=== PATIENT | female | born 1960 | race Caucasian/White ===

== ENCOUNTER 2016-08-08 20:39 | Emergency (ER) | payer OTHER ==
[2016-08-08 20:47] VITALS: BP 115/78; PULSE 67; RESP 20; TEMP 98.6; O2SAT 97
[2016-08-08] MEDS ORDERED: OXYCODONE/APAP 5/325MG PREPACK#4 BTL TAKEHOME ONE (22:05)
--- NOTE | 2016-08-08 22:05 | EDPHY ---
H & P Time Seen by Provider: 08/08/16 21:29 HPI/ROS: CHIEF COMPLAINT: Right lateral foot pain HISTORY OF PRESENT ILLNESS: 55-year-old female complaining of acute right lateral foot pain which occurred this morning when she was in [place] and route to [place], sustained a mechanical slip in twisted her foot. She is able to bear weight albeit with pain, worse after several hours of travel. No direct trauma or fall from height. No paresthesia. Reproducible pain with palpation weight-bearing. PHYSICAL EXAM (Prior to examination, patient consented to physical exam, hands were washed and my usual and customary physical exam procedures followed) 1) GENERAL: Well-developed, well-nourished, alert and oriented. Appears to be in no acute distress. 2) HEAD: Normocephalic 3) HEENT: Pupils equal, round, reactive to light bilaterally. 4) LUNGS: Breathing comfortably. 5) MUSCULOSKELETAL: proximal tibia and fibula nontender . Tender to palpation base of 5th metatarsal and lateral midfoot. negative Mcclellan test, compartments soft 6) SKIN: Intact no tenting no erythema. Mild ecchymosis present at same location of pain 7) VASCULAR: DP,PT pulses and cap refill present and brisk DIFFERENTIAL DIAGNOSIS: in no particular order including but not limited to fracture, sprain, compartment syndrome Xray of the right foot interpreted by myself: Questionable old versus new avulsion fracture lateral to the cuboid bone Procedure: Crutches indications for crutch use discussed with patient. Patient fitted for crutches by ER staff. Observed ambulating with crutches. I think the patient has the capacity to safely use crutches. Usual and customary crutch walking precautions provided Procedure: Splint A [place] boot splint was applied by ER residential gas heat technician. After application of the splint I returned and re-examined the patient. The splint was adequately immobilizing the joint and distal to the splint the patient's circulation and sensation were intact. Patient shows no signs of compartment syndrome. Was given orthopedic precautions. Smoking Status: Never smoked Constitutional: Initial Vital Signs Temperature (C) 37 C 08/08/16 20:46 Heart Rate 67 08/08/16 20:46 Respiratory Rate 20 08/08/16 20:46 Blood Pressure 115/78 08/08/16 20:46 O2 Sat (%) 97 08/08/16 20:46 Allergies/Adverse Reactions: Sulfa (Sulfonamide Antibiotics) Allergy (Intermediate, Verified 08/08/16 20:44) generalized rash Penicillins Allergy (Mild, Verified 08/08/16 20:44) small area of rash Home Medications: Medication Instructions Recorded Cetirizine [ZyrTEC 10 mg (RX)] 12/11/13 Hydrocodone/APAP 5/325 [[place] 1 - 2 each PO Q6 PRN #20 tab 12/11/13 5/325] Ondansetron Odt [Zofran Odt] 4 mg PO Q4PRN PRN #20 tab 12/11/13 buPROPion [Wellbutrin 75mg (*)] 12/11/13 oxyCODONE/APAP 5/325 [Percocet 1 tab PO Q6 #10 tab 08/08/16 5/325] MDM/Departure - MDM ED Course/Re-evaluation: Patient is neurovascularly intact. She would like to follow up with Taylor Cline , orthopedics at [facility]. - Depart Disposition: Home, Routine, Self-Care Clinical Impression: Fracture of right foot Qualifiers: Encounter type: initial encounter Fracture type: closed Qualifier Code: ( S92.901A) Unspecified fracture of right foot, initial encounter for closed fracture Condition: Good Instructions: Foot Fracture in Adults (ED) Additional Instructions: Return to the ER immediately if you experience discoloration, have worsening pain, numbness, tingling, or any other symptoms that concern you. If you received x-rays in the emergency department today, be advised, that ligamentous , tendon, muscular, and other non-bony injury cannot be fully ruled out. Try to keep your affected extremity elevated above the level of your chest, and keep cold packs on the affected area, for the next 48 hours. Prescriptions: oxyCODONE/APAP 5/325 [Percocet 5/325] 1 tab PO Q6 #10 tab Referrals: Taylor Cline PA [[facility]] - 2-3 days, call for appt.
--- NOTE | 2016-08-09 06:43 | DX ---
Right Foot Minimum 3 Views History: Trauma, pain. Fall. Comparison: None. Findings: Right fifth toe proximal phalanx mid diaphyseal slight irregularity may represent a nondisp laced fracture of indeterminate age. Adjacent soft tissue swelling. Metatarsals demonstrate no acute fracture. There is a small bone density adjacent to the fifth metatarsal base likely representing old trauma. Small plantar calcaneal spur. IMPRESSION: Deformity of the right fifth toe proximal phalanx mid diaphyseal region may represent a n ondisplaced fracture of indeterminate age. Findings and recommendations discussed with Emergency Department physician, Leobardo Stevenson PA-C today at 2230 hours.
== END 2016-08-08 22:28 | disposition home or self-care (01) ==
DX: S92.515A Nondisplaced fracture of proximal phalanx of left lesser toe(s), initial encounter for closed fracture (principal); W18.40XA Slipping, tripping and stumbling without falling, unspecified, initial encounter
CPT/HCPCS: L4386

== ENCOUNTER → 2017-06-30 | Outpatient (CLI) | payer OTHER | LOC: BMCIMAGING 12:52 | PROVIDERS: ATTEND Internal Medicine | DX: Z12.31 Encounter for screening mammogram for malignant neoplasm of breast (principal); Z80.3 Family history of malignant neoplasm of breast | CPT/HCPCS: G0202 ==

== ENCOUNTER → 2017-07-14 | Outpatient (CLI) | payer OTHER | LOC: BMCIMAGING 11:25 | PROVIDERS: ATTEND Family Medicine | DX: S82.62XA Displaced fracture of lateral malleolus of left fibula, initial encounter for closed fracture (principal); M25.472 Effusion, left ankle; M77.32 Calcaneal spur, left foot ==

== ENCOUNTER → 2018-07-20 | Outpatient (CLI) | payer OTHER | LOC: BMCIMAGING 14:47 | PROVIDERS: ATTEND Internal Medicine | DX: Z12.31 Encounter for screening mammogram for malignant neoplasm of breast (principal); Z80.3 Family history of malignant neoplasm of breast ==

== ENCOUNTER → 2018-09-10 | Outpatient (CLI) | payer OTHER | LOC: BMCIMAGING 12:15 | PROVIDERS: ATTEND Emergency Medicine | DX: R05 Cough (principal) ==